=== PATIENT | male | born 1980 | race American Indian/Alaskan Native ===

== ENCOUNTER 2017-12-26 14:37 | Emergency (ER) | payer BC ==
[2017-12-26 14:55] VITALS: BMI 28.3
[2017-12-26 15:07] VITALS: RESP 18; O2SAT 99
[2017-12-26] MEDS ORDERED: Lidocaine 5% Patch TD SCH (15:45)
--- NOTE | 2017-12-26 15:52 | ED PDOC ---
Arrival/HPI - General Chief Complaint: Back Pain Time Seen by Provider: 12/26/17 14:53 Historian: Patient - History of Present Illness Narrative History of Present Illness (Text): 37yo male, comes to Emergency room with complaints of lower back pain x couple hours s/p lifting a recycling bin. Patient states the pain is worse with movement and he took Motrin with minimal relief. Patient reports he has a history of sciatica but this pain is different as it does not radiate down his leg. Otherwise: (-) paresthesias, (-) weakness, (-) acute bowel or bladder dysfunction, (-) fever. Time/Duration: 1-3 hours Symptom Onset: Gradual Past Medical History - Provider Review Nursing Documentation Reviewed: Yes - Infectious Disease Hx of Infectious Diseases: None - Psychiatric Hx Substance Use: No - Anesthesia Hx Anesthesia: No Family/Social History - Physician Review Nursing Documentation Reviewed: Yes Family/Social History: No Known Family HX Smoking Status: Never Smoked Hx Alcohol Use: No Hx Substance Use: No Allergies/Home Meds Allergies/Adverse Reactions: Allergies No Known Allergies Allergy (Verified 12/26/17 15:25) Review of Systems - Review of Systems Constitutional: absent: Fatigue, Fevers Respiratory: absent: SOB, Cough Cardiovascular: absent: Chest Pain, Palpitations Gastrointestinal: absent: Abdominal Pain, Constipation, Vomiting Genitourinary Male: absent: Dysuria, Frequency, Hematuria Musculoskeletal: Back Pain. absent: Arthralgias, Neck Pain Skin: absent: Rash, Pruritis Neurological: absent: Headache, Dizziness Physical Exam Vital Signs Temp Pulse Resp BP Pulse Ox 12/26/17 15:06 98.7 F 64 18 146/98 H 99 Temperature: Afebrile Blood Pressure: Normal Pulse: Regular Respiratory Rate: Normal Appearance: Positive for: Well-Appearing, Non-Toxic, Comfortable Pain Distress: None Mental Status: Positive for: Alert and Oriented X 3 - Systems Exam Head: Present: Atraumatic, Normocephalic Pupils: Present: PERRL Extroacular Muscles: Present: EOMI Conjunctiva: Present: Normal Mouth: Present: Moist Mucous Membranes Neck: Present: Normal Range of Motion Respiratory/Chest: Present: Clear to Auscultation, Good Air Exchange. No: Respiratory Distress, Accessory Muscle Use Cardiovascular: Present: Regular Rate and Rhythm, Normal S1, S2. No: Murmurs Abdomen: No: Tenderness, Distention, Peritoneal Signs, Mass/Organomegaly Back: Present: Normal Inspection, Paraspinal Tenderness (+R paralumbar tenderness). No: CVA Tenderness, Midline Tenderness, Pain with Leg Raise Upper Extremity: Present: Normal Inspection, Normal ROM, NORMAL PULSES. No: Cyanosis, Edema Lower Extremity: Present: Normal Inspection, NORMAL PULSES, Normal ROM. No: Edema Neurological: Present: GCS=15, CN II-XII Intact, Speech Normal, Motor Func Grossly Intact, Normal Sensory Function, Gait Normal Skin: Present: Warm, Dry, Normal Color. No: Rashes Psychiatric: Present: Alert, Oriented x 3, Normal Insight, Normal Concentration Medical Decision Making ED Course and Treatment: 12/26/17 15:38 Plan : - toradol IM - flexeril PO - lidoderm patch Diagnosis of lumbar strain discussed with the patient. Patient is smiling and is cheerful, he agrees with plan for outpatient follow up. Advised to follow up with primary care referral provided and ortho in 1-2 days without fail. Advised to take medication as prescribed. Return to the emergency room at any time for any new or worsening symptoms. Patient states he fully agrees with and understands discharge instructions. States that he agrees with the plan and disposition. Verbalized and repeated discharge instructions and plan. I have given the patient opportunity to ask any additional questions. - Medication Orders Current Medication Orders: Lidocaine (Lidoderm) 1 ea TD DAILY EARLE Discontinued Medications Cyclobenzaprine HCl (Flexeril) 10 mg PO STAT STA Stop: 12/26/17 15:38 Ketorolac Tromethamine (Toradol) 60 mg IM STAT STA Stop: 12/26/17 15:38 - PA / CMM OPERATOR / Resident Statement MD/DO has reviewed & agrees with the documentation as recorded. Disposition/Present on Arrival - Present on Arrival Any Indicators Present on Arrival: No History of DVT/PE: No History of Uncontrolled Diabetes: No Urinary Catheter: No History of Decub. Ulcer: No History Surgical Site Infection Following: None - Disposition Have Diagnosis and Disposition been Completed?: Yes Diagnosis: Lumbar strain Disposition: HOME/ ROUTINE Disposition Time: 16:00 Patient Plan: Discharge Patient Problems: Current Active Problems Problem Status Onset Lumbar strain Acute Condition: STABLE Discharge Instructions (ExitCare): Low Back Pain (DC), Lumbar Muscle Strain ( DC) Additional Instructions: Thank you for letting us take care of you today. You were treated for lumbar strain. The emergency medical care you received today was directed at your acute symptoms. If you were prescribed any medication, please fill it and take as directed. It may take several days for your symptoms to resolve. Return to the Emergency Department if your symptoms worsen, do not improve, or if you have any other problems. Please contact primary care referral in 2 days for re-evaluation and follow up / or call one of the physicians/clinics you have been referred to that are listed on the Patient Visit Information form that is included in your discharge packet. Bring any paperwork you were given at discharge with you along with any medications you are taking to your follow up visit. Our treatment cannot replace ongoing medical care by a primary care provider (PCP) outside of the emergency department. Thank you for allowing the [facility] team to be part of your care today. Prescriptions: Cyclobenzaprine [Cyclobenzaprine HCl] 10 mg PO TID PRN #15 tab PRN Reason: Muscle Spasm Lidoderm Patch Removal 1 unit TOP Q12H PRN #20 ea PRN Reason: Pain, Moderate (4-7) Meloxicam [Mobic] 15 mg PO DAILY #20 tab Referrals: PCP,HALEY [Primary Care Provider] - Follow up with primary Adri Maria MD [Medical Doctor] - Follow up with primary Viri Owusu DO [Staff Provider] - Follow up with primary Yang Olivera MD [Staff Provider] - Follow up with primary Forms: [employer] (Irish), WORK NOTE
[2017-12-26 18:08] VITALS: BP 142/71; PULSE 70; TEMP 98.6
== END 2017-12-26 16:40 | disposition home or self-care (01) ==
LOC: ED 14:37
DX: S39.012A Strain of muscle, fascia and tendon of lower back, initial encounter (principal); X58.XXXA Exposure to other specified factors, initial encounter
CPT/HCPCS: 96372; 99282; J1885

== ENCOUNTER 2017-12-29 14:27 | Emergency (ER) | payer BC ==
[2017-12-29 14:36] VITALS: BMI 27.4
[2017-12-29] MEDS ORDERED: Naproxen 550 mg Tab PO STA (15:06)
[2017-12-29 15:35] VITALS: RESP 18; TEMP 98.6; O2SAT 99
--- NOTE | 2017-12-29 16:24 | ED PDOC ---
Arrival/HPI - General Chief Complaint: Back Pain Time Seen by Provider: 12/29/17 14:37 Historian: Patient - History of Present Illness Narrative History of Present Illness (Text): 12/29/17 14:40 37 year old male, with no significant past medical history, who was brought in to the Emergency department by EMS s/p tripping and falling over a rock with his left foot prior to arrival, noting lower back pain and left heel pain. Patient notes he works for [employer], and while working he fell forward "tweaking" his back. Patient notes he had back pain prior to the incident and was seen here recently for it and prescribed medication, noting no significant relief from medication. Patient denies any loss of consciousness, head injury, fever, chills, chest pain , shortness of breath, nausea, vomiting, diarrhea, neck pain, headache, dizziness, or any other complaints. Time/Duration: Prior to Arrival Symptom Onset: Sudden Symptom Course: Unchanged Context: Work (while walking at work, tripped and fell on rock with left foot) Past Medical History - Provider Review Nursing Documentation Reviewed: Yes - Infectious Disease Hx of Infectious Diseases: None - Psychiatric Hx Substance Use: No - Anesthesia Hx Anesthesia: No Family/Social History - Physician Review Nursing Documentation Reviewed: Yes Family/Social History: No Known Family HX Smoking Status: Unknown If Ever Smoked Hx Alcohol Use: No Hx Substance Use: No Allergies/Home Meds Allergies/Adverse Reactions: Allergies No Known Allergies Allergy (Verified 12/26/17 15:25) Review of Systems - Physician Review All systems were reviewed & negative as marked: Yes - Review of Systems Constitutional: Normal. absent: Fevers Eyes: Normal ENT: Normal Respiratory: Normal Cardiovascular: Normal. absent: Chest Pain, Syncope Gastrointestinal: Normal. absent: Diarrhea, Nausea, Vomiting Genitourinary Male: Normal Musculoskeletal: Back Pain (patient notes lower back pain), Other (Patient notes left heel pain. ). absent: Normal, Neck Pain Skin: Normal Neurological: Normal. absent: Headache, Dizziness Endocrine: Normal Hemo/Lymphatic: Normal Psychiatric: Normal Physical Exam Vital Signs Reviewed: Yes Vital Signs Temp Pulse Resp BP Pulse Ox 12/29/17 15:34 98.6 F 70 18 164/88 H 99 Temperature: Afebrile Blood Pressure: Hypertensive Pulse: Regular Respiratory Rate: Normal Appearance: Positive for: Well-Appearing, Non-Toxic, Comfortable Pain Distress: None Mental Status: Positive for: Alert and Oriented X 3 - Systems Exam Head: Present: Atraumatic, Normocephalic Pupils: Present: PERRL Extroacular Muscles: Present: EOMI Conjunctiva: Present: Normal Mouth: Present: Moist Mucous Membranes Neck: Present: Normal Range of Motion Respiratory/Chest: Present: Clear to Auscultation, Good Air Exchange. No: Respiratory Distress, Accessory Muscle Use Cardiovascular: Present: Regular Rate and Rhythm, Normal S1, S2. No: Murmurs Abdomen: No: Tenderness, Distention, Peritoneal Signs Back: Present: Other (mild paralumbar tenderness). No: Normal Inspection Upper Extremity: Present: Normal Inspection. No: Cyanosis, Edema Lower Extremity: Present: Normal Inspection. No: Edema Neurological: Present: GCS=15, CN II-XII Intact, Speech Normal Skin: Present: Warm, Dry, Normal Color. No: Rashes Psychiatric: Present: Alert, Oriented x 3, Normal Insight, Normal Concentration Medical Decision Making ED Course and Treatment: 12/29/17 14:40 Impression: 37 year old patient brought in to the Emergency department by EMS s/ p tripping and falling forward over a rock with his left foot prior to arrival, noting lower back pain and left heel pain. Differential Diagnosis included but are not limited to: Plan: -- Anaprox DS 550 mg PO -- X-Ray of left foot, 3 views routine -- X-Ray of LS Spine with OBL >18 yrs old -- Reassess and disposition Prior Visits: Notes and results from previous visits were reviewed. Patient was last seen in the Emergency department on 12/26/17 for lower back pain x couple hours s/p lifting a recycling bin. Patient was discharged home, given instructions for care, prescribed medication, and directed to follow up with PMD. Progress Notes: XR L foot : no fracture, no dislocation, as read by PA XR L spine : no fracture, as read by PA Re-evaluation, patient is resting comfortably in bed in no acute distress. Neuro intact. Patient able to stand and ambulate. XR results d/w the patient. Advised to follow up with workman's comp in 1-2 days, fill Rxs for pain medication and muscle relaxer. - RAD Interpretation Radiology Orders: 12/29/17 15:06 FOOT LEFT 3 VIEWS ROUTINE [RAD] Stat LS SPINE WITH OBL > 18 YRS OLD [RAD] Stat - Medication Orders Current Medication Orders: Discontinued Medications Naproxen (Anaprox Ds) 550 mg PO ONCE STA Stop: 12/29/17 15:07 Last Admin: 12/29/17 15:18 Dose: 550 mg - PA / SUPER[employer]OR [employer]PARATION / Resident Statement MD/DO has reviewed & agrees with the documentation as recorded. - Scribe Statement The provider has reviewed the documentation as recorded by the Scribe Ana Burgos All medical record entries made by the Scribe were at my direction and personally dictated by me. I have reviewed the chart and agree that the record accurately reflects my personal performance of the history, physical exam, medical decision making, and the department course for this patient. I have also personally directed, reviewed, and agree with the discharge instructions and disposition. Disposition/Present on Arrival - Present on Arrival Any Indicators Present on Arrival: No History of DVT/PE: No History of Uncontrolled Diabetes: No Urinary Catheter: No History of Decub. Ulcer: No History Surgical Site Infection Following: None - Disposition Have Diagnosis and Disposition been Completed?: Yes Diagnosis: Foot pain, left, Low back pain Disposition: HOME/ ROUTINE Disposition Time: 17:00 Patient Plan: Discharge Condition: STABLE Discharge Instructions (ExitCare): Low Back Pain (DC), Muscle and Bone Pain ( DC) Additional Instructions: Thank you for letting us take care of you today. You were treated for low back pain, left foot pain. The emergency medical care you received today was directed at your acute symptoms. If you were prescribed any medication, please fill it and take as directed. It may take several days for your symptoms to resolve. Return to the Emergency Department if your symptoms worsen, do not improve, or if you have any other problems. Please contact workman's doctor in 2 days for re-evaluation and follow up / or call one of the physicians/clinics you have been referred to that are listed on the Patient Visit Information form that is included in your discharge packet. Bring any paperwork you were given at discharge with you along with any medications you are taking to your follow up visit. Our treatment cannot replace ongoing medical care by a primary care provider (PCP) outside of the emergency department. Thank you for allowing the [email or web address] team to be part of your care today. If you had an X-Ray : A Radiologist will review the ED reading if any change in treatment is needed we will contact you. Referrals: Yang Olivera MD [Staff Provider] - Follow up with primary Forms: [employer] (Peruvian), WORK NOTE
--- NOTE | 2017-12-29 17:06 | RAD ---
Date of service: 12/29/2017 PROCEDURE: Left Foot Radiographs. HISTORY: pain COMPARISON: None. FINDINGS: BONES: Normal. No fracture. JOINTS: Normal. SOFT TISSUES: Normal. OTHER FINDINGS: None. IMPRESSION: Normal left foot radiographs.
--- NOTE | 2017-12-29 17:07 | RAD ---
Date of service: 12/29/2017 PROCEDURE: Radiographs of the Lumbar Spine. HISTORY: pain COMPARISON: No prior. FINDINGS: BONES: Normal alignment. No listhesis. No fracture. DISC SPACES: Unremarkable. OTHER FINDINGS: None. IMPRESSION: Unremarkable radiographs of the lumbar spine.
[2017-12-29 17:44] VITALS: BP 142/76; PULSE 76
== END 2017-12-29 17:20 | disposition home or self-care (01) ==
LOC: ED 14:27
DX: M54.5 Low back pain (principal); M79.672 Pain in left foot